=== PATIENT | female | born 1960 | race Caucasian/White ===

== ENCOUNTER 2016-08-29 03:31 | Inpatient (IN) | payer OTHER ==
[~2016-08-29] VITALS: Ht 165.1 cm; Wt 64.4 kg
[~2016-08-29 03:31] MED LIST: ZOLOFT100 M1 PO
--- NOTE | 2016-08-29 14:18 | Operative Report ---
Operative/Inv Procedure Report Surgery Date: 08/29/16 Name of Procedure: Mastectomy, sentinel lymph node biopsy, left breast biopsy with wire localization Pre-Operative Diagnosis: Right breast cancer, left indeterminate lesion Post-Operative Diagnosis: Same Estimated Blood Loss: 50ml to 100ml Surgeon/Architectural Project Captain: TEVIN GANDHI,RAMOS Correa Anesthesia: general endotracheal tube Specimens: Right breast, sentinel lymph node, left breast biopsy, deep tissue, lateral tissue Operative/Procedure Note Note: Patient brought to the operating room on 06/28/2017 after preoperative wire localization and lymphoscintigraphy were performed. Those films reviewed. She brought to the operating room placed under general anesthesia. 2 g of Ancef was given and bilateral breasts were prepped and draped in a sterile fashion using ChloraPrep. He cc of methylene blue diluted with 2 mL of saline was injected in the retroareolar fashion. The right breast was approached. Curvilinear incision was were made above and below the areola after injection of half percent Marcaine. The breast was dissected creating skin flaps superiorly to the level of the clavicle, medially to the sternum, inferiorly to the superior border the rectus sheath, and laterally to the axilla. Removed from the pectoralis fashion using plasma blade. It was marked with a suture at the medial aspect. The axilla was explored. There was a single hot, blue lymph node which was identified and removed. There were no other hot, blue, or palpable lymph nodes identified in the axilla. He was stasis was adequate. The left breast was then approached. A curvilinear incision was made after injecting Marcaine. The wire was brought into the incision and the area of concern was grasped using an Allis clamp. The specimen was removed and marked for orientation using margin map. Intraoperative x-ray failed to confirm the presence of the clip in the specimen. Additional deep tissue was taken and marked with a suture in the deep margin. This also had no clip visible. There was a small amount of firm tissue lateral to the wire. This was excised and did show the clip. This tissue was marked as lateral tissue. The wound was irrigated with sterile saline. Hemostasis was adequate. Clips were used to la the borders of dissection. Deep tissue was proximal made using interrupted Vicryl sutures. Skin was closed using a running Monocryl subcuticular stitch. The right breast was reconstructed by Dr. Sommer.
--- NOTE | 2016-08-29 15:17 | Admission Core Measures ---
Admission Meds I reviewed the following Meds: Current Medications Sig/Kedar Start time Last Medication Dose Stop Time Status Admin Acetaminophen 650 MG Q6P PRN 08/29 1445 AC (Tylenol) Cefazolin Sodium 1,000 MG IQ8 08/29 1600 AC (Kefzol-Ancef Inj) 08/30 0001 Cefazolin Sodium 2,000 MG ONCE 08/29 0000 NR (Kefzol-Ancef Inj) 08/29 2359 Dextrose/Sodium 1,000 ML ONCE ONE 08/29 1500 AC Chloride 08/30 0419 (D5-Normal Saline) Docusate Sodium 100 MG DAILY NEEDED PRN 08/29 1445 AC (Colace) Heparin Sodium 5,000 UNIT Q8 08/29 2200 AC (Porcine) Morphine Sulfate 4 MG Q2P PRN 08/29 1445 AC (Morphine) Omeprazole 40 MG DAILY AC 08/30 0700 AC (Prilosec) Ondansetron HCl 4 MG Q6P PRN 08/29 1445 AC (Zofran) Oxycodone/ 1 TAB Q4P PRN 08/29 1445 AC Acetaminophen (Percocet) Oxycodone/ 2 TAB Q4P PRN 08/29 1445 AC Acetaminophen (Percocet) Sertraline HCl 100 MG DAILY 08/30 1000 AC (Zoloft) Acute Coronary Syndrome Inclusion Criteria ACS Diagnosis No Inpatient Core Measures LDL Reminder: If No, please order W/I first 24hr of stay Congestive Heart Failure Inclusion Criteria CHF Diagnosis No Cerebrovascular accident Inclusion Criteria CVA/TIA Diagnosis No Inpatient Core Measures Bedside Swallow Eval Reminder: If BSE failed, place ST order Antithrombotic Reminder: Order Antithrombotic Medication by end of day 2 Antithrombotic Reminder: Document Reason Antithrombotic Not ordered by end of day 2 AFIB/Flutter Reminder: If Present, add to problem list AFIB/Flutter Reminder: Order Anticoag Medication for pts with AFIB/Flutter Atherosclerosis Reminder: If Present, add to problem list LDL Reminder: If No, please order W/I first 24hr of stay PT Order Reminder: If No, please order Venous thromboembolism Inpatient Core Measures VTE Risk Factors: Age > 40, Cancer/chemo/oth therapy, Surgery VTE Prophylaxis Ordered Inpt Mech & Pharm No Mech VTE prophylaxis d/t No contraindications No VTE Pharm Prophylaxis d/t No contraindications Inclusion Criteria - Per Current guidelines, there needs to be overlap - treatment for the first 5 days of Warfarin therapy. - Parenteral Anticoagulation (IV or SC) needs to be - given along with Warfarin therapy. VTE Diagnosis No VTE Type NONE VTE Confirmed by (Test) NONE Problem List As ranked by this Provider includes Assessment & Plan 1. S/P breast reconstruction, right 2. S/P mastectomy 3. Breast cancer HOME MEDS Home Med List Sertraline HCl (Zoloft) 100 MG TABLET 1 TAB PO DAILY DEPRESSION (Reported)
--- NOTE | 2016-08-29 15:33 | Operative Report ---
Operative/Inv Procedure Report Surgery Date: 08/29/16 Name of Procedure: Right-sided breast reconstruction with Flex HD and tissue diagnostic medical sonographer Pre-Operative Diagnosis: Absent right breast due to cancer Post-Operative Diagnosis: same Estimated Blood Loss: 50ml to 100ml Surgeon/Engine Repairer Service: tao Anesthesia: general endotracheal tube Operative/Procedure Note Note: Patient was counseled regarding the procedure the alternatives risks and the expected outcomes essentially a request for surgical intervention for right- sided breast reconstruction following a right-sided mastectomy due to cancer. Neurological options and has chosen tissue expansion followed by permanent breast prosthesis with today's procedure including use of dermal matrix. About infection bleeding surgeries risk of infection could include the need to remove all of the reconstruction. She was told she would likely need symmetrizing procedure on the opposite side once there is a stable reconstruction. Informed consent was signed today after additional questions are answered. She was brought to the operating room and underwent a right sided ostectomy. Drapes were placed the skin was prepped. Divided inferiorly and inferior medially. The tissue diagnostic medical sonographer was placed in the pocket and an inferior sling was created with a trimmed piece of Flex HD. 2 drains were placed. Skin was closed without tension in 2 layers roughly 250 mL was placed in the diagnostic medical sonographer.
[2016-08-29 17:00] VITALS: BP 124/72
--- NOTE | 2016-08-29 17:00 | NUR ---
PATIENT ARRIVED TO FLOOR AT 1617 FROM PACU, S/P R BREAST MASTECTOMY, L BREAST NIPPLE BIOPSY VS 97.6 84 18 124/72 90% ROOM AIR, PLACED ON 2L O2 94% A&O, LCTA, INDEPENDENT, REG DIET 2 STERI STRIPS TO R BREAST, WITH 2 HOMERO DRAINS 1 STERI STRIP TO L BREAST MASTECTOMY BRA PLACED ON, ICE R AREA NEEDED IV #20 TO LW WITH D5NS @ 75 ML/HR RUNNING ART D/C'D AT 1430, DTV AT 2230 ORIENTED TO ROOM AND CALL SHI CONTINUE TO MONITOR
--- NOTE | 2016-08-29 17:33 | PN- General Surgery ---
NICOL MEHTA PA-C 08/29/16 1725: Subjective Subjective: POST OP NOTE: Postop day 0 56-year-old female status post right side mastectomy with tissue kindergarten instructional assistant and placement of 2 HOMERO drains and left side breast lumpectomy. She is comfortable, pain is controlled with IV morphine, no nausea, no vomiting, most the pain is right breast, moderate. No fevers no complaints of chest pain or shortness of breath Objective Physical Exam: Well-developed well-nourished no apparent distress. HEENT: Atraumatic, extraocular motion intact Neck: Supple, no lymphadenopathy Back: Nontender Respiratory: No respiratory distress, clear to auscultation bilateral Anterior chest breast region, right sided, dressing clean dry and intact, HOMERO drain output approximately 60 mL total between both drains. No skin surface changes Left side, Steri-Strips in place, wound is clean and dry, no signs of discharge or erythema Heart: Regular rate and rhythm no murmur Extremities: No edema, no calf pain or tenderness Neuro: Alert and oriented x3 Psych: Mood affect normal, normal memory normal judgment. Skin: Warm and dry, no rash on exposed skin Assessment/Plan Assessment/Plan Postop day 0 postoperative check status post right side mastectomy and tissue kindergarten instructional assistant with 2 HOMERO drains placed and left-sided lobectomy -Pain control with IV morphine then Percocet -Regular diet - Ancef 2 doses for infectious prophylaxis -Empty drains every shift and when necessary -Heparin for DVT prophylaxis - out of bed as tolerated -Planning for discharge to home tomorrow -Discussed with Dr. Medrano Core Measures/Miscellaneous Venous Thromboembolism VTE Prophylaxis Ordered Inpt Mech & Pharm VTE Diagnosis: No VTE Type: NONE VTE Confirmed by (Test): NONE SUDHIR RIOS 08/29/16 1740: Objective Vital Signs and I&Os vss Current Medications: Current Medications Sig/Kedar Start time Last Medication Dose Route Stop Time Status Admin Acetaminophen 650 MG Q6P PRN 08/29 1645 AC PO Acetaminophen 650 MG Q6P PRN 08/29 1445 DC PO Cefazolin Sodium 1,000 MG Q8H 08/29 2000 AC IV 08/30 0401 Cefazolin Sodium 1,000 MG IQ8 08/29 1600 DC IV 08/30 0001 Cefazolin Sodium 2,000 MG ONCE 02/08 0000 NR IV 08/29 2359 Dextrose/Sodium 1,000 ML ONCE ONE 08/29 1500 AC 08/29 Chloride IV 08/30 0419 1652 Docusate Sodium 100 MG DAILY NEEDED PRN 08/29 1645 AC PO Docusate Sodium 100 MG DAILY NEEDED PRN 08/29 1445 DC PO Heparin Sodium 5,000 UNIT Q8 08/29 2200 DC (Porcine) SC Heparin Sodium 5,000 UNIT Q8 08/29 2200 AC (Porcine) SC Lidocaine 20 ML .STK-MED ONE 08/29 0859 DC ID 08/29 0900 Morphine Sulfate 4 MG Q2P PRN 08/29 1645 AC 08/29 IV 1657 Morphine Sulfate 4 MG Q2P PRN 08/29 1445 DC IV Omeprazole 40 MG DAILY AC 08/30 0700 DC PO Omeprazole 40 MG DAILY AC 08/30 0700 AC PO Ondansetron HCl 4 MG Q6P PRN 08/29 1645 AC IV Ondansetron HCl 4 MG Q6P PRN 08/29 1445 DC IV Oxycodone/ 1 TAB Q4P PRN 08/29 1645 AC Acetaminophen PO Oxycodone/ 2 TAB Q4P PRN 08/29 1645 AC Acetaminophen PO Oxycodone/ 1 TAB Q4P PRN 08/29 1445 DC Acetaminophen PO Oxycodone/ 2 TAB Q4P PRN 08/29 1445 DC Acetaminophen PO Sertraline HCl 100 MG DAILY 08/30 1000 DC PO Sertraline HCl 100 MG DAILY 08/30 1000 AC PO Core Measures/Miscellaneous Venous Thromboembolism VTE Risk Factors: Age > 40, Surgery VTE Contraindications: No Contraindications Beta Kurtis Is Beta Kurtis a Home Med? No Antibiotics Is Patient on Antibiotics? Yes If Yes: prophylaxis
[2016-08-29 18:57] VITALS: BP 122/64
[2016-08-29 21:24] VITALS: BP 130/80
--- NOTE | 2016-08-29 21:25 | MAMMOGRAPHY REPORT ---
EXAMINATION: MM NEEDLE LOCALIZATION SPECIMEN FROM THE BREAST, LEFT CLINICAL INDICATION: Left breast lesion positive for complex sclerosing lesion associated with the usual ductal hyperplasia and microcalcifications in benign ducts. COMPARISON: Needle localization mammograms of 08/29/2016, post-MRI biopsy mammograms of 06/29/2016, mammograms of 01/26/2016. FINDINGS: The radiograph of the excised surgical specimen shows that the hookwire is delivered intact and the marker clip is identified in the submitted specimens. IMPRESSION: Satisfactory excision of the targeted lesion. These findings were communicated to the surgeon in the OR at the time of specimen radiography.
--- NOTE | 2016-08-29 21:41 | MAMMOGRAPHY REPORT ---
EXAMINATION: MM LEFT BREAST NEEDLE LOCALIZATION CLINICAL INFORMATION: Personal history of right breast cancer. Left breast biopsy positive for complex sclerosing lesion associated with usual ductal hyperplasia and microcalcifications in benign ducts. Patient presented for localization of left breast biopsy clip. COMPARISON: Mammograms of 06/29/2016, 03/28/2016, breast MRI of 05/31/2016, breast MRI biopsy of 06/29/2016. TECHNIQUE NEEDLE LOC: Proper informed consent is obtained from the patient after discussion of the procedure, potential risks and complications, and alternatives including declining the procedure today. Patient was given an opportunity for questions. The patient appeared to understand. The patient consented to the procedure and signed the consent form. GUIDANCE: Digital mammography. APPROACH: Craniocaudal TARGET: A edwardo-shaped postbiopsy marker clip at 12 o'clock in the middle depth. ANESTHESIA: 5 mL lidocaine 1% LOCALIZATION MARKER: [place] The skin was prepped and local anesthesia administered. The needle was positioned and position was assessed with mammography. The wire was hooked into position. The patient tolerated the procedure well and had no immediate complication. Diagram was marked for the surgeon. The target is at 12 o'clock, 6 cm cm deep to the skin with 14.5 cm of the wire remaining external to the skin. IMPRESSION: Status post left breast needle localization with wire hooked into position. The target is at 12 o'clock, 6 cm deep to the skin with 15 cm of the wire remaining external to the skin.
--- NOTE | 2016-08-29 22:30 | NUR ---
PATIENT HAS NOT VOIDED, IS NOT HAVING PAIN OR A STRONG URGE TO GO. BLADDER SCANNED <50CC. CONTINUE TO MONITOR. PT IS AWARE THAT SHE NEEDS TO VOID.
[2016-08-30 00:27] VITALS: BP 140/80
[2016-08-30 04:00] VITALS: BP 144/70
--- NOTE | 2016-08-30 07:09 | PN- General Surgery ---
Subjective Subjective: feels well with michelle emuscle tightness Objective Vital Signs and I&Os Vital Signs Date Time Temp Pulse Resp B/P Pulse O2 O2 Flow FiO2 Ox Delivery Rate 08/30 0027 98.7 86 20 140/80 95 08/29 2124 98.0 85 20 130/80 92 08/29 1857 96.4 87 18 122/64 92 08/29 1745 Nasal 2.0L Cannula 08/29 1700 Nasal 2.0L Cannula 08/29 170 97.6 84 18 124/72 90 Room Air Intake & Output 08/30 0800 08/30 0000 08/29 1600 08/29 0800 08/29 0000 08/28 1600 Intake Total 3088 Output Total 300 Balance 2788 Intake, IV 2488 Intake, Oral 600 Output, 120 Drainage Output, Other 100 Output, Urine 80 Patient 142 lb Weight Physical Exam: dressings in tact. No hematoma, no upper extremity edema Assessment/Plan Assessment/Plan Patient doing well after right mastectomy, sentinel node biopsy and reconstruction, left breast biopsy. Pain controlled somewhat with percocet. Add valium for muscle tightness. Tolerating po. Ambulate. HOMERO teaching. DC planning for tomorrow. Core Measures/Miscellaneous Venous Thromboembolism VTE Risk Factors: Age > 40, Surgery VTE Contraindications: No Contraindications VTE Prophylaxis Ordered Inpt Mech & Pharm VTE Diagnosis: No VTE Type: NONE VTE Confirmed by (Test): NONE Beta Kurtis Is Beta Kurits a Home Med? No Antibiotics Is Patient on Antibiotics? Yes If Yes: prophylaxis Attending MD Review Statement Attending Statement Attending MD Statement: examined this patient
[2016-08-30 07:47] VITALS: BP 120/62
[2016-08-30 08:51] LABS: ABSOLUTE BASOPHIL COUNT 0 /CUMM (0.0-0.2); ABSOLUTE EOSINOPHIL COUNT 0.1 /CUMM (0.0-0.7); ABSOLUTE GRANULOCYTE CT 7.3 /CUMM (1.4-6.5); ABSOLUTE LYMPH COUNT 1.7 /CUMM (1.2-3.4); ABSOLUTE MONOCYTE COUNT 0.7 /CUMM (0.10-0.60); BASOPHIL % 0.2 % (0.0-2.0); EOSINOPHIL % 1.3 % (0-5); GRANULOCYTE % 73.9 % (42.2-75.2); HEMATOCRIT 35.5 % (37-47); MEAN CORPUSCULAR HGB 31.5 PG (27.0-31.0); MEAN CORPUSCULAR HGB CONC 34.1 G/DL (33.0-37.0); MEAN CORPUSCULAR VOLUME 92.6 FL (81.0-99.0); PLATELET COUNT 246 /CUMM (130-400); RBC DISTRIBUTION WIDTH 13.9 % (11.5-14.5); RED BLOOD CELL CT 3.84 /CUMM (4.20-5.40); WHITE BLOOD CELL COUNT 9.9 /CUMM (4.8-10.8)
[2016-08-30 11:54] VITALS: BP 120/63
[2016-08-30] MEDS ORDERED: VALIUM10 M1 PO (15:55)
[2016-08-30] MEDS ORDERED: PERCOCET 5-3251 EACH PO (15:55)
[2016-08-30] MEDS ORDERED: DOCUSATE SODIU100 M3 PO (15:55)
--- NOTE | 2016-08-30 15:59 | Patient Discharge Instructions ---
Discharge Instructions General Discharge Information You were seen/treated for: Right breast cancer, left indeterminate lesion You had these procedures: Right mastectomy, sentinel lymph node biopsy Left breast biopsy with wire localization Right-sided breast reconstruction with tissue computer system technician Watch for these problems: fever>101.3, increased pain, redness/swelling/drainage Other wound care: dry guaze dressing changes as directed Special Instructions: HOMERO drain care. empty & record output daily. keep HOMERO drains to bulb suction. Diet Continue normal diet: Yes Recommended Diet: Regular Activity Full Activity/No Limits: No Activity Self Limited: Yes Acute Coronary Syndrome Inclusion Criteria At DC or during hospital stay patient has or had the following: ACS DIAGNOSIS No Discharge Core Measures Meds if any: Prescribed or Continued at Discharge Meds if any: NOT Prescribed or Continued at Discharge Congestive Heart Failure Inclusion Criteria At DC or during hospital stay patient has or had the following: CHF DIAGNOSIS No Discharge Core Measures Meds if any: Prescribed or Continued at Discharge Meds if any: NOT Prescribed or Continued at Discharge Cerebrovascular accident Inclusion Criteria At DC or during hospital stay patient has or had the following: CVA/TIA Diagnosis No Discharge Core Measures Meds if any: Prescribed or Continued at Discharge Meds if any: NOT Prescribed or Continued at Discharge Venous thromboembolism Inclusion Criteria VTE Diagnosis No VTE Type NONE VTE Confirmed by (Test) NONE Discharge Core Measures - Per Current guidelines, there needs to be overlap - treatment for the first 5 days of Warfarin therapy. - If discharged on Warfarin prior to 5 days of - overlap therapy, the patient will need to be - assessed for post discharge needs including - *Post discharge parental anticoagulation - *Warfarin and/or parental anticoagulation education - *Follow up date to check INR post discharge At least 5 days overlap therapy as Inpatient No Meds if any: Prescribed or Continued at Discharge Note: Overlap Therapy is Warfarin and Anticoagulant Meds if any: NOT Prescribed or Continued at Discharge
[2016-08-30 16:11] VITALS: BP 120/66
[2016-08-30 23:32] VITALS: BP 134/78
--- NOTE | 2016-08-31 06:49 | PN- General Surgery ---
Subjective Subjective: Reports pain and tightness improve with percocet and valium. Tolerating diet. No nausea. Out of bed without difficulty. No dizziness. No shortness of breath. Voiding well. Comfortable with HOMERO drain care. Anticipates discharge to home today. Objective Vital Signs and I&Os Vital Signs Date Time Temp Pulse Resp B/P Pulse O2 O2 Flow FiO2 Ox Delivery Rate 08/30 2332 97.9 76 20 134/78 91 Room Air 08/30 1611 97.7 79 19 120/66 91 08/30 1154 98.6 72 20 120/63 91 Room Air 08/30 0800 20 93 Room Air 08/30 0747 98.2 64 20 120/62 90 Room Air Intake & Output 08/31 0808/31 0000 08/30 1600 08/30 0808/30 0000 08/29 1600 Intake Total 240 087 381 9843 3088 Output Total 555 550 239 5516 300 Balance -315 415 -15 285 2788 Intake, IV 10 600 2488 Intake, Oral 240 812 700 8978 600 Number 0 0 Bowel Movements Output, 55 35 25 65 120 Drainage Output, Other 100 Output, Urine 500 330 573 5761 80 Patient 142 lb Weight Physical Exam: General - alert & oriented x 3. comfortable. no acute distress. Lungs - clear bilaterally. no w/r/r. Cardiac - s1s2. reg Chest - dressings c/d/i. no hematoma. HOMERO drains with scant serosang drainage Abdomen - soft. nontender. Extremities - warm bilaterally. no c/c/e. calves soft and nontender b/l. Assessment/Plan Assessment/Plan This 56 year old white female is POD#2 s/p right mastectomy, sentinel node biopsy and reconstruction, left breast biopsy Pain controlled with percocet Tightness/spasm improves with valium oob/ambulating well comfortable with HOMERO drain care hep sc - dvt ppx d/c home today will d/w Core Measures/Miscellaneous Venous Thromboembolism VTE Risk Factors: Age > 40, Surgery VTE Contraindications: No Contraindications VTE Prophylaxis Ordered Inpt Mech & Pharm VTE Diagnosis: No VTE Type: NONE VTE Confirmed by (Test): NONE Beta Kurtis Is Beta Kurtis a Home Med? No Antibiotics Is Patient on Antibiotics? Yes If Yes: prophylaxis
[2016-08-31 07:53] VITALS: BP 106/60
--- NOTE | 2016-09-25 09:11 | Surgical Discharge Summary ---
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 Home Who Do You Live With? Daughter What is Your Primary Language? Yoruba Review of Systems: Negative Hospital Course Course Attending Physician: RAMOS ABARCA MD Primary Care Physician: HARMAN MONROY Hospital Course: Patient was admitted on 08/29/2016 and underwent a right mastectomy and sentinel node biopsy with immediate reconstruction and left breast biopsy. She did well postoperatively and was discharged home tolerating regular diet with adequate pain control on postoperative day 2. Allergies: Coded Allergies: No Known Allergies (05/08/16) Disposition Summary Disposition Principal Diagnosis: Right breast invasive cancer, left breast atypia Additional Diagnosis: None Discharge Disposition: home or self care Discharge Instructions General Discharge Information Code Status: Full Code Patient's Diet: As tolerated Patient's Activity: As tolerated Follow-Up Instructions/Appts: 1 week follow-up with Dr. Sommer and Dr. Abarca Medications at Discharge Discharge Medications: Continue taking these medications: Sertraline HCl (Zoloft) 100 MG TABLET 1 Tablet ORAL DAILY Comments: DOCUMENTED PER CMR DURING PRE-SX INTERVIEW Last Taken:08/31/16 Time:8 AM
== END 2016-08-31 09:57 | DRG 581 ==
LOC: ENRESERVTM → ENRESERVDT → ENPENDDIS 03:31 → SDA 03:31 → STS 07:00 → EDSTATUS 07:00 → CBW.IIU 08:00 → CBW.MAMMO 08:30 → 2NB 16:18
PROVIDERS: Physician Assistant Surgical; ADMIT Surgery
PROC: 07B50ZX Excision of Right Axillary Lymphatic, Open Approach, Diagnostic (ICD-10-PCS; principal; 2016-08-29)
PROC: 0HTT0ZZ Resection of Right Breast, Open Approach (ICD-10-PCS; principal; 2016-08-29)
PROC: 0HHT0NZ Insertion of Tissue Expander into Right Breast, Open Approach (ICD-10-PCS; 2016-08-29)
PROC: 0HBU0ZX Excision of Left Breast, Open Approach, Diagnostic (ICD-10-PCS; 2016-08-29)
DX: D05.11 Intraductal carcinoma in situ of right breast (principal); F32.9 Major depressive disorder, single episode, unspecified; E78.00 Pure hypercholesterolemia, unspecified; F17.210 Nicotine dependence, cigarettes, uncomplicated
CPT/HCPCS: 2NBSP; 36415; 82436; 88305; 88307; A9520; J0131; J0690; J1580; J1644; J2001; J2405; J7042; Q4128

== ENCOUNTER → 2016-09-10 | Day surgery (SDC) | payer OTHER ==
[~2016-09-10] VITALS: Ht 167.6 cm; Wt 65.8 kg
[~2016-09-10] MED LIST changes: +DOCUSATE SODIU100 M3 PO; +PERCOCET 5-3251 EACH PO; +VALIUM10 M1 PO
--- NOTE | 2016-09-10 10:57 | ED SKIN/ALLERGY COMPLAINT ---
History of Present Illness General Chief Complaint: General Adult Stated Complaint: S/P BREAST CA SURG 08/05/? INFECTION Source: patient Exam Limitations: no limitations Allergies Coded Allergies: No Known Allergies (05/08/16) Reconcile Medications Sertraline HCl (Zoloft) 100 MG TABLET 1 TAB PO DAILY DEPRESSION (Reported) Triage Note: PT TO ED FOR REMOVAL OF BREAST IMPLANT ON RIGHT SIDE, PLACED ON 09/08/[address] CHING. PT HAD IMPLANT PLACED S/P BREAST CA. PT SAW DR CHING TODAY FOR F/U AND WAS TOLD TO COME TO ED FOR IV ABX AND OR THIS AFTERNOON FOR INFECTED IMPLANT. Triage Nurses Notes Reviewed? yes HPI: This patient is a 56-year-old female who has medical history including breast cancer presented to the emergency department today at the request of her plastic surgeon, Dr. Reynoso, for lab work and antibiotics for right-sided breast implant infection. This patient had a breast implant placed by Dr. Reynoso on 09/08/2016. The patient reported that she first noticed redness to the right breast yesterday. She reported pain started today gets up to an 8 out of 10. It is throbbing and nonradiating. The patient reported that she was feeling nauseous this morning, but denies any vomiting or abdominal pain. She reported tactile fevers. The patient denied any chest pain or difficulty breathing. (JAGDISH MCPHERSON,TEENA) Vital Signs & Intake/Output Vital Signs & Intake/Output Vital Signs Date Time Temp Pulse Resp B/P Pulse O2 O2 Flow FiO2 Ox Delivery Rate 09/10 1238 97.5 81 18 115/56 97 Room Air 09/10 1203 Room Air Room Air ED Intake and Output 09/11 0000 09/10 1200 Intake Total 0 Output Total Balance 0 Intake, Oral 0 Patient 145 lb Weight Past History Travel History Traveled to [place] past 21 day No Medical History Any Pertinent Medical History? 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 No (TEENA DUBON PA-C) Review of Systems Review of Systems Constitutional: Reports: see HPI. EENTM: Reports: no symptoms. Respiratory: Reports: no symptoms. Cardiovascular: Reports: no symptoms. GI: Reports: see HPI. Genitourinary: Reports: no symptoms. Musculoskeletal: Reports: no symptoms. Skin: Reports: see HPI. Neurological/Psychological: Reports: no symptoms. All Other Systems: Reviewed and Negative (TEENA DUBON PA-C) Physical Exam Physical Exam General Appearance: well developed/nourished, no apparent distress, alert, awake Comments: Well-developed well-nourished person in no acute distress HEENT: Normal EENT exam, head normocephalic, moist mucous membranes Pupils equally round and reactive to light. Neck: Supple, no lymphadenopathy Back: Normal gait. Normal inspection Cardiovascular: Regular rate and rhythm no murmurs Respiratory: Lungs clear to auscultation bilaterally Extremity: Normal and equal pulses Neuro: Alert oriented x3, motor sensory normal, cranial nerves II through XII grossly intact. Skin: No appreciable rash on exposed skin, skin is warm and dry. Erythema and induration to the medial aspect of the right breast which is exquisitely tender to palpation. No fluctuance or drainage. Mild amount of surrounding edema. Incision site is horizontally to the midpoint of the breasts with overlying dressing clean, dry, and intact Psych: Mood and affect is normal, memory and judgment is normal. (TEENA DUBON PA-C) Progress Differential Diagnosis: abscess/cellulitis, allergic reaction, contact dermatitis, drug reaction, SEPSIS Comments: 09/10/2016 10:59:12 AM: Message was given to RN that this patient is to receive IV antibiotics here in the emergency department and then will go for surgery for breast implant removal today by Dr. Reynoso. I have put out a page to Dr. Reynoso. 09/10/2016 11:46:57 AM: Discussed this patient with Dr. Reynoso. He would like to take her up to the operating room at approximately 1:00 this afternoon. He would like to get 3 g of Unasyn here in the emergency department. Blood cultures are currently pending. (MARY DUBON PA-CHAN) Plan of Care: Orders Procedure Date/time Status TRUNK AREA OR SPEC 09/10 1346 Active PATHOLOGY SPECIMEN 09/10 1346 Active Add-on Test (ER Only) 09/10 1222 Active HUMAN BETA HCG SCREEN 09/10 1109 Complete Laboratory Tests 09/10/16 1336: Lactic Acid Cancelled 09/10/16 1109: Anion Gap 14, Estimated GFR > 60, BUN/Creatinine Ratio 15.0, Glucose 94, Lactic Acid 0.8, Calcium 9.0, Total Bilirubin 0.6, AST 24, ALT 51, Alkaline Phosphatase 114, Total Protein 6.9, Albumin 3.8, Globulin 3.1, Albumin/Globulin Ratio 1.2, Total Beta HCG NEGATIVE, PT 12.2, INR 1.16, APTT 32, CBC w Diff NO MAN DIFF REQ, RBC 4.27, MCV 90.8, MCH 30.9, RDW 14.1, MPV 6.7 L, Gran % 87.7 H, Lymphocytes % 5.6 L, Monocytes % 4.2, Eosinophils % 2.4, Basophils % 0.1, Absolute Granulocytes 10.3 H, Absolute Lymphocytes 0.7 L, Absolute Monocytes 0.5, Absolute Eosinophils 0.3, Absolute Basophils 0, PUBS MCHC 34.1 Microbiology 09/10 1346 TRUNK/O.R.: Culture & Sensitivity - RES STAPH AUREUS 09/10 134 TRUNK/O.R.: Gram Stain - RES 09/10 1346 BODY FLUID: Body Fluid Culture - CAN Cancelled: WRONG ORDER 09/10 134 BODY FLUID: Gram Stain - CAN Cancelled: WRONG ORDER 09/10 1109 BLOOD: Blood Culture - RECD Departure Departure Disposition: STILL A PATIENT Condition: Stable Clinical Impression Primary Impression: Post-operative infection Qualifiers: Encounter type: initial encounter Qualified Code: T81.4XXA - Infection following a procedure, initial encounter Referrals: HARMAN MONROY (PCP/Family) Departure Forms: Customer Survey General Discharge Information OR/GI Note Spoke With: JEANE GANDHI,EDOUARD Stock ED Treatment Decision: NABOR CORDERO requires urgent operative management or an emergent procedure that cannot be performed in the Emergency Room setting. Transport To: [facility] (TEENA DUBON PA-C)
[2016-09-10 11:44] LABS: ABSOLUTE BASOPHIL COUNT 0 /CUMM (0.0-0.2); ABSOLUTE EOSINOPHIL COUNT 0.3 /CUMM (0.0-0.7); ABSOLUTE GRANULOCYTE CT 10.3 /CUMM (1.4-6.5); ABSOLUTE LYMPH COUNT 0.7 /CUMM (1.2-3.4); ABSOLUTE MONOCYTE COUNT 0.5 /CUMM (0.10-0.60); BASOPHIL % 0.1 % (0.0-2.0); EOSINOPHIL % 2.4 % (0-5); GRANULOCYTE % 87.7 % (42.2-75.2); HEMATOCRIT 38.8 % (37-47); MEAN CORPUSCULAR HGB 30.9 PG (27.0-31.0); MEAN CORPUSCULAR HGB CONC 34.1 G/DL (33.0-37.0); MEAN CORPUSCULAR VOLUME 90.8 FL (81.0-99.0); MEAN PLATELET VOLUME 6.7 FL (7.4-10.4); PLATELET COUNT 332 /CUMM (130-400); RBC DISTRIBUTION WIDTH 14.1 % (11.5-14.5); RED BLOOD CELL CT 4.27 /CUMM (4.20-5.40); WHITE BLOOD CELL COUNT 11.7 /CUMM (4.8-10.8)
[2016-09-10 11:59] LABS: PT 12.2 SEC (9.4-12.5); PTT 32 SEC (25-37)
[2016-09-10 12:38] VITALS: BP 115/56
--- NOTE | 2016-09-10 14:28 | Cons- Plastic Surgery ---
General Information and HPI Consulting Request Date of Consult: 09/10/16 Requested By: annette Reason for Consult: Cellulitis right breast Source of Information: patient Exam Limitations: no limitations History of Present Illness: Patient underwent combined mastectomy on the right followed by tissue telecommunication tower technician breast reconstruction on August 29. The patient states she noticed her r breast turning red last week. She then reports possibly some chills without fever yesterday some increasing pain and redness overlying the right breast. Allergies/Medications Allergies: Coded Allergies: No Known Allergies (05/08/16) Home Med List: Sertraline HCl (Zoloft) 100 MG TABLET 1 TAB PO DAILY DEPRESSION (Reported) Current Medications: Current Medications Sig/Kedar Start time Last Medication Dose Route Stop Time Status Admin Ampicillin Sodium/ 3,000 MG ONCE ONE 09/10 1200 DC 09/10 Sulbactam Sodium IV 09/10 1229 1158 Sodium Chloride 100 ML Ampicillin Sodium/ 0 .STK-MED ONE 09/10 1152 DC Sulbactam Sodium .ROUTE Past History Medical History Neurological: NONE EENT: NONE Cardiovascular: hyperlipidemia Respiratory: NONE Gastrointestinal: NONE Hepatic: NONE Renal: NONE Musculoskeletal: NONE Psychiatric: depression Endocrine: NONE Blood Disorders: NONE Cancer(s): breast cancer 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 Surgical History Pertinent Surgical History: tubal ligation, BIOPSY-R BREAST RIGHT-SIDED BREAST IMPLANT Psychosocial History ETOH Use: denies use Illicit Drug Use: denies illicit drug use Review of Systems Review of Systems: al other systems questioned and are negative Exam & Diagnostic Data Vital Signs and I&O Vital Signs Date Time Temp Pulse Resp B/P Pulse O2 O2 Flow FiO2 Ox Delivery Rate 09/10 1238 97.5 81 18 115/56 97 Room Air 09/10 1203 Room Air Room Air 09/10 1028 97.0 97 20 121/76 96 Room Air Intake & Output 09/10 1600 09/10 0800 09/10 0000 09/09 1600 09/09 0800 09/09 0000 Intake Total 0 Output Total Balance 0 Intake, Oral 0 Patient 145 lb Weight Physical Exam: Patient is in no acute distress lying comfortably on a stretcher. Examination shows. No acute distress. Vital signs are stable. No white count was elevated at 11,000. Fashion of the patient shows the following of normality is the right breast is red and tender to touch. There is no active drainage. 2 HOMERO drains show purulent drainage. There is no crepitus. Assessment/Plan Assessment/Plan Cellulitis with infection of breast prosthesis. He was given the option of attempt at salvage by exchanging the components. The patient has chosen not to have reconstruction at this time. The telecommunication tower technician and the AlloDerm B removed the pocket will be cleaned and a drain that we placed with primary skin closure. The patient accepts. We discussed the risks of infection and bleeding which was accepted. Consult Acknowledgment - Thank you for your consult request.
--- NOTE | 2016-09-10 14:31 | Operative Report ---
Operative/Inv Procedure Report Surgery Date: 09/10/16 Name of Procedure: Explantation right breast tissue data processing consultant removal dermal matrix pocket complex closure 15 cm reattachment pectoralis major muscle to chest wall Pre-Operative Diagnosis: Cellulitis with infected tissue data processing consultant following mastopexy On the right Post-Operative Diagnosis: Same Estimated Blood Loss: scant Surgeon/Biomass Plant Manager: justin burger Anesthesia: general endotracheal tube Operative/Procedure Note Note: Patient was counseled in regards to the procedure the alternatives the risks and the expected outcomes of placed our request for likely infected components of a right breast reconstruction following mastectomy. The patient would rather have no further reconstruction at this time. We talked about the cosmetic changes that will take place he apparently understands and accepts. She was taken to the operating room placed supine on the table. Venodyne boots are placed and then general endotracheal anesthesia was established. The incision was excised to be brought back to fresh healthy appearing tissue. The space was entered and there was a purulent collection identified medially. Culture had been taken prior through the open wound. As well as all suture material. Curettage was carried out through all the surfaces. Pulsatile lavage irrigation with triple antibiotic was also done. Pectoralis was then advanced and attached to the chest wall mostly through rib surfaces. Stab incision brought out laterally. There was a 2 layer closure performed of that wound debridement prior to closure. Ends dictation
== END ==
LOC: ERH 10:23 → STS 12:50
PROVIDERS: Physician Assistant
DX: T81.4XXA Infection following a procedure, initial encounter (principal); C50.911 Malignant neoplasm of unspecified site of right female breast; Y81.2 Prosthetic and other implants, materials and accessory general- and plastic-surgery devices associated with adverse incidents
CPT/HCPCS: 87070; 87075; 87184; 87040; 87147; 96374; J0131; J0690; J1170; J1580; J2175; J2250; J3010